=== PATIENT | male | born 1970 | race Caucasian/White ===

== ENCOUNTER 2019-04-30 15:12 | Emergency (ER) | payer OTHER, SELFPAY ==
[2019-04-30 15:21] VITALS: BP 142/86; PULSE 87; RESP 22; TEMP 36.8; O2SAT 96
--- NOTE | 2019-04-30 15:23 | ED.BACK ---
HPI - Back Pain/Injury <PURNIMA Hernandez Last Filed: 04/30/19 20:35> General Chief Complaint: Back Pain/Injury Stated Complaint: low back pain Time Seen by Provider: 04/30/19 15:13 Source: patient Mode of arrival: ambulatory Limitations: no limitations History of Present Illness HPI Narrative: This 48-year-old male who suffers from chronic back pain comes in due to acute exacerbation today. He states he woke up and could not get out of bed. He states that he does not remember any specific trauma though last time he had a flare up it was just from reaching out to pick something up. He states that he did many years of very heavy lifting in the , has had 2 herniated discs and has chronic pain for which at double CBD/THC and Tylenol usually help enough. He has a prescription for [place] with him from 2014 that he still has not used up, did take 1 today which has not helped as much as usual. He states he feels like his back is in spasm and this is similar to previous flares. 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 This is unchanged today. He denies any new weakness or paresthesia in his legs. He denies any new groin numbness. He denies any bowel or bladder changes today. No new fever or other new symptoms. He states that pain radiates in to some spots in his leg, also unchanged but feels like spasm is in his back. Related Data Home Medications Medication Instructions Recorded Confirmed albuterol sulfate [ProAir HFA] 1 puff INHALATION DIRECTED 04/30/19 loratadine 10 mg PO DAILY 04/30/19 04/30/19 Previous Rx's Medication Instructions Recorded cyclobenzaprine 10 mg PO Q8H #12 tab 04/30/19 oxycodone-acetaminophen [Percocet] 1 tab PO Q4-6H PRN #6 tab 04/30/19 Allergies Allergy/AdvReac Type Severity Reaction Status Date / Time prednisone Allergy Intermediate Confusion Verified 04/30/19 15:38 Review of Systems <PURNIMA Hernandez Last Filed: 04/30/19 20:35> Review of Systems ROS Unobtainable: All systems reviewed & are unremarkable except as noted in HPI and below PFSH <PURNIMA Hernandez Last Filed: 04/30/19 20:35> Medical History (Updated 04/30/19 @ 17:20 by Susana Prieto PA-C) Chronic low back pain (Chronic) Chronic sinusitis (Chronic) S/P ORIF (open reduction internal fixation) fracture (Resolved) Surgical History (Updated 04/30/19 @ 15:42 by Susana Prieto PA-C) History of sinus surgery (Resolved) Status post lumbar discectomy (Resolved) Social History Smoking Status: Current every day smoker Social History Smoking Status: Current every day smoker Comment: uses edibles for pain Exam <Susana Prieto PA-C - Last Filed: 04/30/19 20:35> Narrative Exam Narrative: GENERAL APPEARANCE: Patient sitting in wheelchair, appears uncomfortable, but in NAD PULMONARY: Lungs clear to auscultation bilaterally CV: Regular rhythm regular without murmur, normal S1 and S2, no S3 or S4 MUSCULOSKELETAL: Mild tenderness over the right inferior lumbar musculature, more tender over the left mid to inferior paraspinal musculature and lumbar musculature to the mid scapular. No proximal lumbar or thoracic tenderness, no right-sided tenderness. He moves from chair to table with a great deal of tenderness, able to lie on his left side. Lower extremity strength 5/5 bilateral hip flexors, knee extensors, foot plantar flexion. Negative modified straight leg raise NEUROLOGIC: Bilateral patellar and Achilles DTRs 2+ Initial Vital Signs Initial Vital Signs: Vital Signs Temperature 98.2 F 04/30/19 15:21 Pulse Rate 87 04/30/19 15:21 Respiratory Rate 22 04/30/19 15:21 Blood Pressure 142/86 H 04/30/19 15:21 Pulse Oximetry 96 04/30/19 15:21 <Willow Claire DO - Last Filed: 05/01/19 08:54> Initial Vital Signs Initial Vital Signs: Vital Signs Temperature 98.2 F 04/30/19 15:21 Pulse Rate 87 04/30/19 15:21 Respiratory Rate 22 04/30/19 15:21 Blood Pressure 142/86 H 04/30/19 15:21 Pulse Oximetry 96 04/30/19 15:21 Course <Susana Prieto PA-C - Last Filed: 04/30/19 20:35> Additional Information: Patient felt as though this were consistent with his previous back spasms. He was markedly improved after medications, able to stand, walk, and sit comfortably. Discussed return precautions and he is agreeable with this as well as plan to follow up with PCP Orders Ordered: Discontinued Medications Cyclobenzaprine HCl (Flexeril) 10 mg PO NOW ONE Stop: 04/30/19 15:37 Last Admin: 04/30/19 15:43 Dose: 10 mg Ketorolac Tromethamine (Toradol) 60 mg IM NOW ONE Stop: 04/30/19 15:37 Last Admin: 04/30/19 15:43 Dose: 60 mg Oxycodone/Acetaminophen (Percocet 5/325) 1 tab PO NOW ONE Stop: 04/30/19 15:37 Last Admin: 04/30/19 15:43 Dose: 1 tab Vital Signs - 8 hr 04/30/19 15:21 04/30/19 16:43 04/30/19 17:25 Temperature 98.2 F Pulse Rate 87 75 76 Respiratory Rate 22 18 18 Blood Pressure 142/86 H 134/80 Blood Pressure [Left Arm] 150/79 H Pulse Oximetry 96 95 96 <Willow Claire DO - Last Filed: 05/01/19 08:54> Orders Ordered: Discontinued Medications Cyclobenzaprine HCl (Flexeril) 10 mg PO NOW ONE Stop: 04/30/19 15:37 Last Admin: 04/30/19 15:43 Dose: 10 mg Ketorolac Tromethamine (Toradol) 60 mg IM NOW ONE Stop: 04/30/19 15:37 Last Admin: 04/30/19 15:43 Dose: 60 mg Oxycodone/Acetaminophen (Percocet 5/325) 1 tab PO NOW ONE Stop: 04/30/19 15:37 Last Admin: 04/30/19 15:43 Dose: 1 tab Vital Signs - 8 hr 04/30/19 15:21 04/30/19 16:43 04/30/19 17:25 Temperature 98.2 F Pulse Rate 87 75 76 Respiratory Rate 22 18 18 Blood Pressure 142/86 H 134/80 Blood Pressure [Left Arm] 150/79 H Pulse Oximetry 96 95 96 Discharge Plan Departure Patient Disposition: Home Clinical Impression: Lumbar paraspinal muscle spasm Discharge Date/Time: 04/30/19 17:25 Interventions: ED Discharge Assessment Last Done: 04/30/19 17:25 Instructions: DI for Low Back Pain, DI for Back Spasm Activity Restrictions/Additional Instructions: Since you are feeling better and able to get around, you can monitor at home. You can take the muscle relaxant (cyclobenzaprine) every 8 hours as needed. I have given you a prescription for a few oxycodone/acetaminophen since that seemed to help today (do not use either of these medicines and drive since they can make you sleepy). Please continue ibuprofen every 8 hours starting tomorrow as often these medicines will work nicely together. As we talked about, you should return to the ED if you have acutely worsening or new symptoms such as difficulty urinating or numbness in your groin. Otherwise, please follow-up with your primary care provider in the next few days for recheck and also to determine whether further treatment such as physical therapy or aquatic therapy may be helpful. Prescriptions: New cyclobenzaprine 10 mg tablet 10 mg PO Q8H Qty: 12 RF: 0 oxycodone-acetaminophen [Percocet] 5-325 mg tablet 1 tab PO Q4-6H PRN (Reason: pain) Qty: 6 RF: 0 No Action albuterol sulfate [ProAir HFA] 90 mcg/actuation HFA aerosol inhaler 1 puff inhalation DIRECTED RF: 0 loratadine 10 mg tablet 10 mg PO DAILY RF: 0 Referrals: Jose Luis Ambrocio MD [Non-Staff] - <Willow Claire DO - Last Filed: 05/01/19 08:54> [facility] ED Attending Raduature Attestation: I was immediately available in the department for consultation. Documentation has been reviewed. I agree with assessment and plan.
[2019-04-30] MEDS: KETOROLAC 60 MG/2 ML VIAL IM (15:43)
[2019-04-30] MEDS: OXYCODONE/ACETAMINOPHEN 5/325 TABLET 1 TAB PO (15:43)
[2019-04-30] MEDS: CYCLOBENZAPRINE 10 MG TABLET PO (15:43)
[2019-04-30 16:43] VITALS: BP 150/79; PULSE 75; RESP 18; O2SAT 95
[2019-04-30 17:25] VITALS: BP 134/80; PULSE 76; RESP 18; O2SAT 96
== END 2019-04-30 17:25 | disposition home or self-care (01) ==
PROVIDERS: Emergency Provider Internal Medicine
DX: M62.830 Muscle spasm of back (principal)
CPT/HCPCS: 96372; 99282; 99283; J1885